=== PATIENT | male | born 1995 | race Two or more races ===

== ENCOUNTER 2017-09-17 22:34 | Emergency (ER) | payer BC, MEDICAID ==
--- NOTE | 2017-09-17 22:49 | ED Physician Chart ---
ED Chief Complaint/HPI - Patient Information Date Seen:: 09/17/17 Time Seen:: 22:30 Chief Complaint:: Right Forearm Bruise History of Present Illness:: onset x one week of intermittent MS type Right Forearm pain after moving rhebarb metal while at work one week ago; pt denies blunt trauma, H/As, neck pain, C/P, SOB, Abd. Pain, flank pain, gait changes, paresthesias, weakness, dizziness, visual changes, or vertigo; pt's last tetanus shot: < 5 years; UTD Allergies:: Allergies Allergy/AdvReac Type Severity Reaction Status Date / Time No Known Allergies Allergy Verified 07/19/16 11:25 Vitals:: Vital Signs - 8 hr 09/17/17 22:35 Temp 97.9 F HR 75 RR 18 BP 137/74 O2 Sat % 99 Historian:: Patient Review:: Nurse's Note Reviewed ED Review of Systems - Review of Systems General/Constitutional: No fever, No chills, No weight loss, No weakness, No diaphoresis, No edema, No loss of appetite Skin: No skin lesions, No rash, No bruising Head: No headache, No light-headedness Eyes: No loss of vision, No pain, No diplopia ENT: No earache, No nasal drainage, No sore throat, No tinnitus Neck: No neck pain, No swelling, No thyromegaly, No stiffness, No mass noted Cardio Vascular: No chest pain, No palpitations, No PND, No orthopnea, No edema Pulmonary: No SOB, No cough, No sputum, No wheezing GI: No nausea, No vomiting, No diarrhea, No pain, No melena, No hematochezia, No constipation, No hematemesis G/U: No dysuria, No frequency, No hematuria, No nacturia Musculoskeletal: No bone or joint pain, No back pain, No muscle pain Endocrine: No polyuria, No polydipsia Psychiatric: No prior psych history, No depression, No anxiety, No suicidal ideation, No homicidal ideation, No auditory hallucination, No visual hallucination Hematopoietic: No bruising, No lymphadenopathy Allergic/Immuno: No urticaria, No angioedema Neurological: No syncope, No focal symptoms, No weakness, No paresthesia, No headache, No seizure, No dizziness, No confusion, No vertigo ED Past Medical History - Past Medical History Obtainable: Yes Past Medical History: No significant medical hx Family History: None Social History: Non Smoker, No Alcohol, No Drug Use, Single, Employed Surgical History: None Psychiatricy History: None Medication: Reviewed Family Medical History - Family Member Father History Unknown: Yes Ethnicity: Hx Family Cancer: No Hx Family Coronary Artery Disease: No Hx Family Congestive Heart Failure: No Hx Family Diabetes: Yes ED Physical Exam - Physical Examination General/Constitutional: Awake, Well-developed, well-nourished, Alert, No distress, GCS 15, Non-toxic appearing, Ambulatory Head: Atraumatic Eyes: Lids, conjuctiva normal, PERRL, EOMI Skin: Nl inspection, No rash, No skin lesions, No ecchymosis, Well hydrated, No lymphadenopathy ENMT: External ears, nose nl, TM canals nl, Nasal exam nl, Lips, teeth, gums nl , Oropharynx nl, Tonsils nl Neck: Nontender, Full ROM w/o pain, No JVD, No nuchal rigidity, No bruit, No mass, No stridor Other Neck comments:: supple; no meningeal signs; no cervical tenderness; no bruits Respiratory: Nl effort/Exclusion, Clear to Auscultation, No Wheeze/Rhonchi/Rales Cardio Vascular: RRR, No murmur, gallop, rubs, NL S1 S2, Carotid/Femoral/Distal pulses equal bilaterally GI: No tenderness/rebounding/guarding, No organomegaly, No hernia, Normal BS's, Nondistended, No mass/bruits, No McBurney tenderness, Rectum exam nl Other GI comments:: no pulsatile masses : No CVA tenderness Extremities: No tenderness or effusion, Full ROM, normal strength in all extremities, No edema, Normal digits & nails Other Extremities comments:: Right Distal Forearm: small contusion; no cellulitis; no FBs; full ROMs of all joints; no ligament instability; no septic joints; good motor, tendon, and sensory functions; good NV functions Neuro/Psych: Alert/oriented, DTR's symmetric, Normal sensory exam, Normal motor strength, Judgement/insight normal, Mood normal, Normal gait, No focal deficits Misc: Normal back, No paraspinal tenderness ED Labs/Radiology/EKG Results - Radiology Results Comments:: X-Rays: deferred by pt ED Septic Shock - . Is Septic Shock (SBP<90, OR Lactate>4 mmol\L) present?: No - <6hrs of presentation: Vital Signs: Vital Signs - 8 hr 09/17/17 22:35 Temp 97.9 F HR 75 RR 18 BP 137/74 O2 Sat % 99 ED Reassessment (Disposition) - Reassessment Reassessment:: pt is asymptomatic upon discharge Reassessment Condition:: Improved - Diagnosis Diagnosis:: Right Forearm Pain; Right Wrist/Forearm Injury; Right Forearm Contusion; Sprains and Strains - Aftercare/Follow up Instructions Aftercare/Follow-Up Instructions:: Counseled pt regarding lab results/diagnosis & need follow up, Refer to Discharge Instructions, Counseled pt & family regarding lab results/diagnosis & need follow up - Patient Disposition Discharge/Transfer:: Home Condition at Disposition:: Stable, Improved (RTER prn if existing s/s reoccur and/or get worse and/or any other new s/s occur; ACIs given for all above Dx; Refer to Orthopedist/Manager Office Services JULIETA; F/U with PMD in one day or prn; RTER prn if concerned)
== END 2017-09-17 23:10 | disposition home or self-care (01) ==
LOC: ER 22:34
DX: S63.501A Unspecified sprain of right wrist, initial encounter (principal); X58.XXXA Exposure to other specified factors, initial encounter; Y93.89 Activity, other specified; Y92.89 Other specified places as the place of occurrence of the external cause; Y99.8 Other external cause status

== ENCOUNTER 2017-10-21 10:45 | Emergency (ER) | payer BC, MEDICAID ==
--- NOTE | 2017-10-21 12:04 | Diagnostic Imaging Report ---
Chest x-ray 2 views HISTORY: Hemoptysis COMPARISON: 07/19/2016 The overall heart size is normal. No focal pulmonary processes. No hilar or mediastinal abnormalities. IMPRESSION : No acute abnormalities.
--- NOTE | 2017-10-21 15:14 | ED Physician Chart ---
ED Chief Complaint/HPI - Patient Information Date Seen:: 10/21/17 Time Seen:: 11:00 Chief Complaint:: Cough History of Present Illness:: onset x 3 days of cough, hemoptysis, fever, and congestion; pt denies trauma, H/ As, S/T, neck pain, C/P, SOB, Abd. Pain, A/N/V/D/C, melena, hematemesiis, hematochezia, chills, or urinary s/s; pt is eating and urinating well; pt last urinated 1/2 hour [employer] Allergies:: Allergies Allergy/AdvReac Type Severity Reaction Status Date / Time No Known Allergies Allergy Verified 07/19/16 11:25 Vitals:: Vital Signs - 8 hr 10/21/17 10/21/17 10/21/17 10:58 12:16 12:26 Temp 98.0 F 98 F HR 80 80 77 RR 17 17 16 BP 146/93 146/93 123/73 O2 Sat % 96 96 96 Historian:: Patient Review:: Nurse's Note Reviewed ED Review of Systems - Review of Systems General/Constitutional: Fever, No chills, No weight loss, No weakness, No diaphoresis, No edema, No loss of appetite Skin: No skin lesions, No rash, No bruising Head: No headache, No light-headedness Eyes: No loss of vision, No pain, No diplopia ENT: No earache, Nasal drainage, No sore throat, No tinnitus Neck: No neck pain, No swelling, No thyromegaly, No stiffness, No mass noted Cardio Vascular: No chest pain, No palpitations, No PND, No orthopnea, No edema Pulmonary: No SOB, Cough, No sputum, No wheezing GI: No nausea, No vomiting, No diarrhea, No pain, No melena, No hematochezia, No constipation, No hematemesis G/U: No dysuria, No frequency, No hematuria, No nacturia Musculoskeletal: No bone or joint pain, No back pain, No muscle pain Endocrine: No polyuria, No polydipsia Psychiatric: No prior psych history, No depression, No anxiety, No suicidal ideation, No homicidal ideation, No auditory hallucination, No visual hallucination Hematopoietic: No bruising, No lymphadenopathy Allergic/Immuno: No urticaria, No angioedema Neurological: No syncope, No focal symptoms, No weakness, No paresthesia, No headache, No seizure, No dizziness, No confusion, No vertigo ED Past Medical History - Past Medical History Obtainable: Yes Past Medical History: No significant medical hx Family History: None Social History: Smoker, No Alcohol, No Drug Use, Single Surgical History: None Psychiatricy History: None Medication: Reviewed Family Medical History - Family Member Father History Unknown: Yes Ethnicity: Hx Family Cancer: No Hx Family Coronary Artery Disease: No Hx Family Congestive Heart Failure: No Hx Family Diabetes: Yes ED Physical Exam - Physical Examination General/Constitutional: Awake, Well-developed, well-nourished, Alert, No distress, GCS 15, Non-toxic appearing, Ambulatory Head: Atraumatic Eyes: Lids, conjuctiva normal, PERRL, EOMI Skin: Nl inspection, No rash, No skin lesions, No ecchymosis, Well hydrated, No lymphadenopathy ENMT: External ears, nose nl, TM canals nl, Nasal exam nl, Lips, teeth, gums nl , Oropharynx nl, Tonsils nl Other ENMT comments:: + nasal Congestion Neck: Nontender, Full ROM w/o pain, No JVD, No nuchal rigidity, No bruit, No mass, No stridor Other Neck comments:: supple; no meningeal signs; no cervical tenderness; no bruits Respiratory: Nl effort/Exclusion, Clear to Auscultation, No Wheeze/Rhonchi/Rales Cardio Vascular: RRR, No murmur, gallop, rubs, NL S1 S2, Carotid/Femoral/Distal pulses equal bilaterally GI: No tenderness/rebounding/guarding, No organomegaly, No hernia, Normal BS's, Nondistended, No mass/bruits, No McBurney tenderness, Rectum exam nl Other GI comments:: no pulsatile masses : No CVA tenderness Extremities: No tenderness or effusion, Full ROM, normal strength in all extremities, No edema, Normal digits & nails Neuro/Psych: Alert/oriented, DTR's symmetric, Normal sensory exam, Normal motor strength, Judgement/insight normal, Mood normal, Normal gait, No focal deficits Misc: Normal back, No paraspinal tenderness ED Labs/Radiology/EKG Results - Radiology Results Comments:: NAD ED Septic Shock - . Is Septic Shock (SBP<90, OR Lactate>4 mmol\L) present?: No - <6hrs of presentation: Vital Signs: Vital Signs - 8 hr 10/21/17 10/21/17 10/21/17 10:58 12:16 12:26 Temp 98.0 F 98 F HR 80 80 77 RR 17 17 16 BP 146/93 146/93 123/73 O2 Sat % 96 96 96 ED Reassessment (Disposition) - Reassessment Reassessment:: pt tolerated po fluids well in ER; pt is asymptomatic upon discharge Reassessment Condition:: Improved - Diagnosis Diagnosis:: Hemoptysis; Cough; Bronchitis; Congestion; Sinusitis; Fever; URI - Aftercare/Follow up Instructions Aftercare/Follow-Up Instructions:: Counseled pt regarding lab results/diagnosis & need follow up, Refer to Discharge Instructions, Counseled pt & family regarding lab results/diagnosis & need follow up Medication Prescribed:: Rx: Amoxicillin 500mg po tid x 10 days; Tylenol 500mg po qid prn fever; Robitussin DM: one tsp po qid prn cough/congestion; Cool Mist Vaporizer; encourage fluids; stop smoking cigarettes - Patient Disposition Discharge/Transfer:: Home Condition at Disposition:: Stable, Improved (RTER prn if existing s/s reoccur and/or get worse and/or any other new s/s occur; X-rays Instructions; ACIs given for all above Dx; refer to Roll On Worker/Magazine Publisher JULIETA; F/U with PMD in one day or prnp; RTER prn if concerned; X-Rays Instructions) ED Discharge Plan - Patient Disposition Admit/Discharge/Transfer: PT DISCHARGED HOME Condition at Disposition: Stable Prescriptions: Amoxicillin [Amoxicillin*] 500 mg PO TID #30 tab Guaifenesin DM [Robitussin DM] 1 tsp PO QID PRN #4 oz PRN Reason: Cough Instructions: Bronchitis, [id number], Upper Respiratory Infection, Adult, [id number] Forms: Work Release Form
== END 2017-10-21 12:32 | disposition home or self-care (01) ==
LOC: ER 10:45
DX: J40 Bronchitis, not specified as acute or chronic (principal); J32.9 Chronic sinusitis, unspecified; R04.2 Hemoptysis; J06.9 Acute upper respiratory infection, unspecified; F17.200 Nicotine dependence, unspecified, uncomplicated
CPT/HCPCS: 71046-TC; Z7502

== ENCOUNTER 2018-03-31 18:50 | Emergency (ER) | payer BC, MEDICAID ==
--- NOTE | 2018-03-31 19:24 | ED Physician Chart ---
ED Chief Complaint/HPI - Patient Information Date Seen:: 03/31/18 Time Seen:: 19:24 Chief Complaint:: Sore throat History of Present Illness:: 23 yo male had sore throat for 3 days worsening today, painful swallowing with neck swelling and tenderness. Patient had muscle pain but denied fever or chills. Patient stated that he had oral and genital sexual contact one day prior to the onset of the symptoms. Patient also had itchy and red rashes on the penis and tightness of foreskin for 3 days. Allergies:: Allergies Allergy/AdvReac Type Severity Reaction Status Date / Time No Known Allergies Allergy Verified 07/19/16 11:25 Vitals:: Vital Signs - 8 hr 03/31/18 19:04 Temp 98.9 F HR 86 RR 16 BP 142/82 O2 Sat % 98 ED Review of Systems - Review of Systems General/Constitutional: No fever, No chills Skin: No skin lesions Head: Headache Eyes: No pain ENT: No earache Neck: Neck pain, Swelling Cardio Vascular: No chest pain Pulmonary: No SOB GI: No nausea, No vomiting Musculoskeletal: Muscle pain Neurological: No focal symptoms ED Past Medical History - Past Medical History Past Medical History: No significant medical hx Social History: Smoker, Alcohol, Illicit Drug Use (marijuana) Surgical History: other (bilateral inguinal hernia repair) Family Medical History - Family Member Father History Unknown: Yes Ethnicity: Hx Family Cancer: No Hx Family Coronary Artery Disease: No Hx Family Congestive Heart Failure: No Hx Family Diabetes: Yes ED Physical Exam - Physical Examination General/Constitutional: Awake, Alert Head: Atraumatic Eyes: PERRL Skin: No ecchymosis Other ENMT comments:: Oropharyngeal erythema and purulent exudates Other Neck comments:: Neck tenderness Respiratory: No Wheeze/Rhonchi/Rales Cardio Vascular: RRR, NL S1 S2 GI: No tenderness/rebounding/guarding Extremities: normal strength in all extremities Neuro/Psych: Normal sensory exam, Normal motor strength, No focal deficits ED Labs/Radiology/EKG Results - Lab Results Results: Laboratory Last Values WBC 12.1 Th/cmm (4.8-10.8) H 03/31/18 19:59 RBC 6.22 Mil/cmm (4.30-5.70) H 03/31/18 19:59 Hgb 17.4 gm/dL (12-16) 09/11/18 19:59 Hct 51.7 % (41.0-60) 03/31/18 19:59 MCV 83.2 fl (80-99) 03/31/18 19:59 MCH 27.9 pg (26.0-30.0) 03/31/18 19:59 MCHC Differential 33.6 pg (28.0-36.0) 03/31/18 19:59 RDW 12.8 % (11.5-20.0) 03/31/18 19:59 Plt Count 265 Th/cmm (150-400) 03/31/18 19:59 MPV 7.2 fl 03/31/18 19:59 Neutrophils % 71.3 % (40.0-80.0) 03/31/18 19:59 Lymphocytes % 15.9 % (20.0-50.0) L 03/31/18 19:59 Monocytes % 10.8 % (2.0-10.0) H 03/31/18 19:59 Eosinophils % 1.9 % (0.0-5.0) 03/31/18 19:59 Basophils % 0.1 % (0.0-2.0) 03/31/18 19:59 Sodium 138 mEq/L (136-145) 03/31/18 19:59 Potassium 4.8 mEq/L (3.5-5.1) 03/31/18 19:59 Chloride 100 mEq/L (98-107) 03/31/18 19:59 Carbon Dioxide 32.4 mEq/L (21.0-31.0) H 03/31/18 19:59 Anion Gap 10.4 (7.0-16.0) 03/31/18 19:59 BUN 13 mg/dL (7-25) 03/31/18 19:59 Creatinine 1.0 mg/dL (0.7-1.3) 03/31/18 19:59 Est GFR ( Amer) > 60.0 ml/min (>90) 03/31/18 19:59 Est GFR (Non-Af Amer) > 60.0 ml/min 03/31/18 19:59 BUN/Creatinine Ratio 13.0 03/31/18 19:59 Glucose 96 mg/dL (70-105) 03/31/18 19:59 Calcium 9.9 mg/dL (8.6-10.3) 03/31/18 19:59 Total Bilirubin 0.4 mg/dL (0.3-1.0) 03/31/18 19:59 AST 14 U/L (13-39) 03/31/18 19:59 ALT 11 U/L (7-52) 03/31/18 19:59 Alkaline Phosphatase 88 U/L (34-104) 03/31/18 19:59 Total Protein 7.1 gm/dL (6.0-8.3) 03/31/18 19:59 Albumin 4.7 gm/dL (4.2-5.5) 03/31/18 19:59 Globulin 2.4 gm/dL 03/31/18 19:59 Albumin/Globulin Ratio 2.0 (1.0-1.8) H 03/31/18 19:59 ED Assessment - Assessment General Assessment: Pharyngitis Leukocytosis Assessment/Comments:: CBC, CMP Rapid strep: negative GC probe Rocephin 1g IM Azithromycin 1000mg PO x 1 D/c home Avoid sex for 7 days ED Septic Shock - . Is Septic Shock (SBP<90, OR Lactate>4 mmol\L) present?: No - <6hrs of presentation: Vital Signs: Vital Signs - 8 hr 03/31/18 19:04 Temp 98.9 F HR 86 RR 16 BP 142/82 O2 Sat % 98 ED Reassessment (Disposition) - Reassessment Reassessment Condition:: Improved - Patient Disposition Discharge/Transfer:: Home
[2018-03-31 20:07] LABS: % BASOPHILS 0.1 % (0.0-2.0); % EOSINOPHILS 1.9 % (0.0-5.0); % LYMPHOCYTES 15.9 % (20.0-50.0); % MONOCYTES 10.8 % (2.0-10.0); % NEUTROPHILS 71.3 % (40.0-80.0); EOSINOPHILE ABSOLUTE 0.2 Th/cmm (0.1-0.4); HEMATOCRIT 51.7 % (41.0-60); HEMOGLOBIN 17.4 gm/dL (12-16); LYMPHOCYTE ABSOLUTE 1.9 Th/cmm (1.5-3.0); MEAN CELL VOLUME 83.2 fl (80-99); MEAN CORPUSCULAR HEMOGLOBIN 27.9 pg (26.0-30.0); MEAN CORPUSCULAR HGB CONC 33.6 pg (28.0-36.0); MEAN PLATELET VOLUME 7.2 fl; MONOCYTE ABSOLUTE 1.3 Th/cmm (0.3-1.0); NEUTROPHILE ABSOLUTE 8.7 Th/cmm (1.8-8.0); PLATELET COUNT 265 Th/cmm (150-400); RED BLOOD COUNT 6.22 Mil/cmm (4.30-5.70); RED CELL DISTRIBUTION WIDTH 12.8 % (11.5-20.0); WHITE BLOOD COUNT 12.1 Th/cmm (4.8-10.8)
[2018-03-31 20:21] LABS: ALBUMIN 4.7 gm/dL (4.2-5.5); ALKALINE PHOSPHATASE 88 U/L (34-104); ANION GAP 10.4 (7.0-16.0); BILIRUBIN,TOTAL 0.4 mg/dL (0.3-1.0); BUN - UREA NITROGEN 13 mg/dL (7-25); CALCIUM SERUM 9.9 mg/dL (8.6-10.3); CARBON DIOXIDE 32.4 mEq/L (21.0-31.0); CHLORIDE 100 mEq/L (98-107); GFR AFRICAN-AMERICAN > 60.0 ml/min (>90); GFR NON AFRICAN-AMERICAN > 60.0 ml/min; GLUCOSE 96 mg/dL (70-105); POTASSIUM SERUM 4.8 mEq/L (3.5-5.1); SGOT 14 U/L (13-39); SGPT/ALT 11 U/L (7-52); SODIUM SERUM 138 mEq/L (136-145); TOTAL PROTEIN,SERUM 7.1 gm/dL (6.0-8.3)
== END 2018-03-31 21:10 | disposition home or self-care (01) ==
LOC: ER 18:50
DX: J02.9 Acute pharyngitis, unspecified (principal); D72.829 Elevated white blood cell count, unspecified; M54.2 Cervicalgia; R21 Rash and other nonspecific skin eruption; F17.200 Nicotine dependence, unspecified, uncomplicated
CPT/HCPCS: 99284; 96372; 36415; 87070; 87081; 85025; 80053; J0696; Z7502